=== PATIENT | female | born 1965 | race Caucasian/White ===

== ENCOUNTER → 2017-03-20 | Outpatient (CLI) | payer BC | END | disposition home or self-care (01) | LOC: LAB.O 11:19 | PROVIDERS: ATTEND Family Medicine | DX: I10 Essential (primary) hypertension (principal) ==

== ENCOUNTER → 2017-04-11 | Outpatient (CLI) | payer BC ==
--- NOTE | 2017-04-11 13:47 | CT ---
EXAM DESCRIPTION: Maxillofacial w/wo Contrast CLINICAL HISTORY: CHRONIC MAXILLARY SINUSITIS COMPARISON: None Available. TECHNIQUE: CT of the sinuses is performed with direct axial imaging technique. Multiplanar reformatted images are reviewed post along with source images. FINDINGS: Mucoperiosteal thickening is present in both maxillary sinuses. This is mild. Both ostiomeatal units are patent. Remaining paranasal sinuses clear. Moderate broad leftward deviation of the nasal septum. Cely bullosa right middle turbinate. IMPRESSION: Chronic appearing mucoperiosteal thickening both maxillary sinuses This exam was performed according to our departmental dose-optimization program, which includes automated exposure control, adjustment of the mA and/or kV according to patient size and/or use of iterative reconstruction technique. Electronically signed by: Rell Valerio MD 04/11/2017 1:46 PM CDT
== END | disposition home or self-care (01) ==
LOC: CT 10:01
PROVIDERS: ATTEND Family Medicine
DX: J32.0 Chronic maxillary sinusitis (principal); J32.1 Chronic frontal sinusitis

== ENCOUNTER 2017-05-08 09:48 | Observation (INO) | payer BC ==
[2017-05-08] MEDS ORDERED: PANTOPRAZOLE SODIUM IV 40 MG VIAL IV ONE (10:08)
[2017-05-08] MEDS ORDERED: SODIUM CHLORIDE 0.9% 1000ML 1,000 ML IVS ONE ×2 (10:08→11:25)
[2017-05-08] MEDS ORDERED: ONDANSETRON INJ 4 MG/2 ML VIAL IV ONE (10:08)
--- NOTE | 2017-05-08 10:11 | ED.PDOC ---
History of Present Illness - General Chief Complaint: GI Problem Stated Complaint: Vomiting and diarrhea Time Seen by Provider: 05/08/17 10:04 Information Source: patient, RN notes reviewed, Vital Signs reviewed Exam Limitations: no limitations - History of Present Illness Initial Comments: Patient reports that she started to feel bad last night. Then started with uncontrollable vomiting and diarrhea @ 05:30 this morning. + epigastric pain both crampy and burning. + chills. + sick contact with same symptoms. Abdominal Pain Onset Location: epigastric Pain Radiation: no radiation Quality: severe, burning, cramping, steady Timing/Duration: 4-6 hours Improving Factors: nothing Worsening Factors: nothing Associated Symptoms: diarrhea, fever/chills, fatigue, heartburn, nausea/vomiting Review of Systems - Review of Systems Constitutional: States: chills, malaise. Denies: fever EENTM: States: no symptoms reported Respiratory: States: no symptoms reported Cardiology: States: no symptoms reported Gastrointestinal/Abdominal: States: see HPI, abdominal pain, diarrhea, nausea, vomiting Musculoskeletal: States: no symptoms reported Skin: States: no symptoms reported Neurological: States: no symptoms reported All other Systems: No Change from Baseline Family Medical History - Family History Mother Family History: No Known Living Status: Physical Exam - Physical Exam General Appearance: Ill Appearing, Unkempt, Well Developed, Well Nourished Neck: supple, normal inspection Respiratory: lungs clear, normal breath sounds, no respiratory distress, no accessory muscle use Cardiovascular/Chest: regular rate, rhythm, no edema, no gallop, no JVD, no murmur Gastrointestinal/Abdominal: soft, abnormal bowel sounds - Hypoactive, tenderness - Epigastric - mild. Extremity: normal inspection Neurologic: alert, normal mood/affect, oriented x 3 Skin Exam: normal color, warm/dry Comments: Vital Signs 05/08/17 09:52 Temperature 97.9 F Pulse Rate [ 78 Left Radial] Respiratory 20 Rate Blood Pressure 171/93 [Left Arm] O2 Sat by Pulse 100 Oximetry Progress - Progress Progress: 05/08/17 10:22 Patient now reporting Zofran has given her a bad BALLESTEROS in the past. Will change to phenergan. 05/08/17 10:45 Patient now reporting she needs something for pain. Explained she was given Protonix and Phenergan. She reports this is her chronic, all over nerve pain that she takes Morphine 30mg TID for. Reports her last dose was yesterday at noon due to not feeling well. 05/08/17 11:23 Patient reports no improvement with Phenergan and Morphine though she is no longer vomiting. Will give another dose of Phenergan and another L of NS. will also check Amylase and Lipase. 05/08/17 12:23 No further vomiting and is sleeping. 05/08/17 13:39 Patient began with vomiting and diarrhea again. Will admit to hospital for further management as I don't feel she will do well at home. Discussed with Hospitalist who is in agreement. Patient and agree with admission. - Results/Orders Results/Orders: Laboratory Tests 05/08/17 05/08/17 10:15 10:15 WBC 13.6 H RBC 5.66 H Hgb 13.7 Hct 42.9 MCV 75.8 L MCH 24.2 L MCHC 31.9 L RDW 16.0 H Plt Count 195 MPV 8.3 Absolute Neuts (auto) 11.50 H Absolute Lymphs (auto) 1.20 Absolute Monos (auto) 0.70 Absolute Eos (auto) 0.10 Absolute Basos (auto) 0.10 Neutrophils % 84.7 H Lymphocytes % 8.5 L Monocytes % 5.5 Eosinophils % 0.9 L Basophils % 0.4 Sodium 142 Potassium 3.8 Chloride 98 Carbon Dioxide 33 H Anion Gap 14.8 BUN 33 H Creatinine 0.70 BUN/Creatinine Ratio 47.1 H Random Glucose 145 H Serum Osmolality Not Reportable Calcium 9.7 Total Bilirubin 1.3 AST 19 ALT 30 Alkaline Phosphatase 138 H Serum Total Protein 8 Albumin 4.7 Globulin 3.3 Albumin/Globulin Ratio 1.4 Departure - Departure Clinical Impression: Gastroenteritis Vomiting Qualifiers: Vomiting type: bilious vomiting Nausea presence: with nausea Qualified Code(s) : R11.14 - Bilious vomiting Time of Disposition: 13:41 Disposition: Admit Patient Condition: Fair Departure Forms: ED Discharge - Pt. Copy, Patient Portal Self Enrollment Referrals: Krishna Abrams MD [Primary Care Provider] - 1-2 Weeks Decision To Admit - Decistion To Admit Decision to Admit Reason: Admit from ER Decision to Admit Date: 05/08/17 Decision to Admit Time: 13:39
[2017-05-08] MEDS ORDERED: PROMETHAZINE HCL INJ 12.5 MG in SODIUM CHLORIDE 0.9% 50ML 50 ML IVPB ONE ×2 (10:23→11:25)
[2017-05-08] MEDS ORDERED: PROMETHAZINE HCL INJ 25 MG/ML VIAL ONE ×2 (10:24→11:37)
[2017-05-08] MEDS ORDERED: SODIUM CHLORIDE 0.9% 50ML 50 ML ONE ×2 (10:25→11:37)
[2017-05-08] MEDS ORDERED: MORPHINE SULFATE INJ 10 MG/ML VIAL IV ONE (10:48)
--- NOTE | 2017-05-08 14:23 | HP ---
SUPERVISING PHYSICIAN: Krishna Abrams MD CHIEF COMPLAINT: Nausea, vomiting and diarrhea. HISTORY OF PRESENT ILLNESS: This is a 52-year-old female patient who visited her children in the [facility] over the weekend and they had gastroenteritis. Last night, she started having some nausea and vomiting and overnight it worsened to the point that her nausea and vomiting became so bad that she came to the Emergency Room. She said the epigastric pain was cramping and burning. She also had chills. She has a significant history of opioid induced constipation and before her symptoms worsened, she actually took some mag citrate because she thought she was having constipation issues and most likely worsened her condition. In the Emergency Room, she was given some IV fluids. She was given some IV Protonix. She also is allergic to Zofran, so she was given some Phenergan. Her lab studies showed WBC slightly elevated at 13.6, hemoglobin 13.7, hematocrit 42.9, neutrophils 84.7. Sodium 142, potassium 3.8, chloride 98, carbon dioxide 33, BUN 33, creatinine 0.7, glucose 145, alkaline phosphatase 138, amylase 36, lipase 23. Abdominal x-ray per radiologic interpretation shows heart size is top limits of normal, pulmonary vascular congestion centrally, minimal increased interstitial markings compatible with minimal edema, mild peribronchial thickening is also seen. No focal consolidation or pleural effusion. Abdominal radiograph shows paucity of bowel gas, no evidence of mechanical bowel obstruction, no organomegaly or obvious abdominal mass lesion. She did say she had been treated several days prior to her admission to the Emergency Room for a sinus infection. She does have a history of chronic sinus infection. She was given clindamycin as well as steroids. She saw her ENT doctor on Saturday or Saturday and he told her he saw no signs or symptoms of an infectious process, but she continued the clindamycin until yesterday. I was called to place the patient in observation. PAST MEDICAL HISTORY: 1. Opioid induced constipation. 2. Chronic sinusitis. 3. Chronic lower limb edema. 4. Asthma. 5. Hypertension. 6. Mitral valve prolapse. 7. Gastroesophageal reflux disease. 8. Irritable bowel syndrome. 9. Degenerative disc disease. 10. Chronic myofascial pain syndrome. PAST SURGICAL HISTORY: 1. Two C-sections. 2. Hysterectomy. 3. Laminectomy. 4. Intrathecal pain pump insertion. 5. Knee surgery. ALLERGIES: AMOXICILLIN, CEPHALEXIN, KETORALAC, ZOFRAN. SHE HAS RECENTLY HAD AN ADVERSE REACTION TO WHAT SHE THINKS WAS DOXYCYCLINE OR LEVOFLOXACIN, SHE IS NOT SURE WHICH ONE, BUT IT WAS JUST SOME GI DISTRESS. SOCIAL HISTORY: She is . She has two children. She has a past history of cigarette smoking, but quit in 1989. She denies any ETOH or illicit drug use. REVIEW OF SYSTEMS: GENERAL: Positive for low grade fever. No for fatigue or weight gain. HEENT: Positive for chronic sinusitis. Negative for ear pain, vision changes or sore throat. RESPIRATORY: Negative for wheezing, coughing or shortness of breath. CARDIAC: Negative for chest pain, palpitations or tachycardia. GASTROINTESTINAL: As per history of present illness. EXTREMITIES: Positive for upper and lower extremity edema. GENITOURINARY: Negative for hematuria, dysuria or polyuria. NEUROLOGIC: Negative for headache, dizziness, or seizures. MUSCULOSKELETAL: Positive for chronic pain. PHYSICAL EXAMINATION: VITAL SIGNS: Afebrile. Heart rate 78. Blood pressure 137/73. It had been 190/ 96 earlier today. Respiratory rate 16. O2 saturation 89 to 95%. GENERAL: This is a 52-year-old female patient who is sitting up in her hospital bed. HEENT: Normocephalic, atraumatic. Pupils are equal and reactive. She has some clear nasal drainage. Oropharynx is clear. NECK: Supple without mass. RESPIRATORY: Essentially clear to auscultation bilaterally. CARDIOVASCULAR: Regular rate and rhythm. ABDOMEN: Soft, nondistended. It is diffusely tender, but mild. Bowel sounds are positive. EXTREMITIES: Trace of edema to bilateral upper and lower extremities. SKIN: Warm and dry. NEUROLOGIC: Awake, alert and oriented times three. LABORATORY: As per the history of present illness. ASSESSMENT: 1. Gastroenteritis. 2. Nausea and vomiting, likely secondary to #1. 3. Diarrhea, most likely secondary to #1, but exacerbated by a dose of mag citrate. 4. Chronic opioid induced constipation. 5. Chronics sinusitis. 6. Asthma. 7. Hypertension. 8. History of mitral valve prolapse. 9. Gastroesophageal reflux disease. 10. Irritable bowel syndrome. 11. Chronic myofascial pain syndrome. PLAN: We will place the patient in observation. I have given her IV fluids and we will make her NPO initially and once her nausea, vomiting and diarrhea subside, we will decrease her IV fluids as she starts to tolerate some clear liquids. I have given her Protonix IV for ulcer prophylaxis as well as she will have Lovenox for DVT prophylaxis. I have given her Compazine for her nausea., re-started her home medications. We will monitor her electrolytes. Hopefully, after her nausea, vomiting and diarrhea subside she can be discharged home. Otherwise, we will continue to monitor the patient closely and follow as needed. Dr. Abrams is the collaborating physician and available for consultation. #[id number] [facility]
--- NOTE | 2017-05-08 14:42 | RAD ---
EXAM DESCRIPTION: Obstructive series, 3 radiographs CLINICAL HISTORY: Epigastric pain/N/V/D FINDINGS/ IMPRESSION: Heart size top limits normal. Pulmonary vascular congestion centrally. Minimal increased interstitial markings compatible with minimal edema. Mild peribronchial thickening is also seen. No focal consolidation or pleural effusion Abdomen radiographs show a paucity of bowel gas. No evidence of mechanical bowel obstruction No organomegaly or obvious abdominal mass lesion Electronically signed by: Spencer Babcock MD 05/08/2017 2:40 PM CDT
[2017-05-08] MEDS ORDERED: SODIUM CHLORIDE 0.9% (FLUSH) 10 ML SYG IV PRN (15:40)
[2017-05-08] MEDS ORDERED: PROCHLORPERAZINE INJ 10 MG/2 ML VIAL IV PRN (15:46)
[2017-05-08] MEDS ORDERED: IV SET AND CAP CHANGE INJ INJ SCH (16:00)
[2017-05-08] MEDS: KCL 20MEQ/D5 1/2NS 1,000 ML IVS PRN ×2 (16:36→22:31)
[2017-05-08] MEDS ORDERED: PANTOPRAZOLE SODIUM IV 40 MG VIAL ONE (19:25)
[2017-05-08] MEDS ORDERED: tiZANidine 4 MG TAB PO PRN (20:32)
[2017-05-08] MEDS ORDERED: SENNA/DOCUSATE TAB 1 EA TAB PO ONE (21:23)
[2017-05-08] MEDS ORDERED: MORPHINE *IMMEDIATE RELEASE* 15 MG TAB ONE (21:54)
[2017-05-08] MEDS ORDERED: predniSONE 10 MG TAB ONE (21:54)
[2017-05-08] MEDS ORDERED: predniSONE 10 MG TAB PO SCH (22:00)
[2017-05-08] MEDS ORDERED: guaiFENesin ER TAB 600 MG TAB PO SCH (22:00)
[2017-05-08] MEDS: MORPHINE *IMMEDIATE RELEASE* 15 MG TAB PO PRN (22:27)
[2017-05-09] MEDS: KCL 20MEQ/D5 1/2NS 1,000 ML IVS PRN (04:36)
[2017-05-09 05:38] VITALS: BP 112/62; TEMP 97.5
[2017-05-09] MEDS ORDERED: PANTOPRAZOLE SODIUM IV 40 MG VIAL IV SCH (06:30)
[2017-05-09] MEDS: MORPHINE *IMMEDIATE RELEASE* 15 MG TAB PO PRN (06:43)
[2017-05-09] MEDS ORDERED: IBUPROFEN 400 MG TAB PO PRN (07:09)
[2017-05-09] MEDS ORDERED: POTASSIUM CHLORIDE 10 MEQ TAB PO ONE (07:14)
[2017-05-09] MEDS ORDERED: POTASSIUM CHLORIDE 10 MEQ TAB PO SCH ×2 (07:30→09:00)
[2017-05-09] MEDS ORDERED: FLUTICASONE FUROATE INH SCH (09:00)
[2017-05-09] MEDS ORDERED: LISINOPRIL 10 MG TAB PO SCH (09:00)
[2017-05-09] MEDS ORDERED: NON-FORMULARY MEDICATION 1 EA MIS (Mirabegron [Myrbetriq] 50 MG) PO SCH (09:00)
[2017-05-09] MEDS ORDERED: ASPIRIN TABLET 325 MG TAB PO SCH (09:00)
[2017-05-09] MEDS ORDERED: NALOXEGOL OXALATE 12.5 MG PO SCH (09:00)
[2017-05-09] MEDS ORDERED: MORPHINE SULFATE 30 MG PO SCH (09:00)
[2017-05-09] MEDS ORDERED: LORATADINE 10 MG TAB PO SCH (09:00)
[2017-05-09] MEDS ORDERED: FUROSEMIDE 40 MG TAB PO SCH (09:00)
[2017-05-09] MEDS ORDERED: BIFIDOBACTERIUM INFANTIS 4 MG CAP PO SCH (09:00)
[2017-05-09] MEDS ORDERED: POTASSIUM CHLORIDE 20 MEQ TAB PO SCH (09:00)
[2017-05-09] MEDS ORDERED: MELOXICAM 7.5 MG TAB PO SCH (09:00)
[2017-05-09 10:30] VITALS: O2SAT 97
--- NOTE | 2017-05-09 10:33 | DS ---
SUPERVISING PHYSICIAN: Krishna Abrams MD DISCHARGE DIAGNOSIS: 1. Gastroenteritis. 2. Nausea and vomiting, likely secondary to #1. 3. Diarrhea, most likely secondary to #1, but exacerbated by a dose of mag citrate. 4. Chronic opioid induced constipation. 5. Chronics sinusitis. 6. Asthma. 7. Hypertension. 8. History of mitral valve prolapse. 9. Gastroesophageal reflux disease. 10. Irritable bowel syndrome. 11. Chronic myofascial pain syndrome. HISTORY OF PRESENT ILLNESS: This is a 52-year-old female patient who visited her children in the [facility] over the weekend and they had gastroenteritis. Last night, she started having some nausea and vomiting and overnight it worsened to the point that her nausea and vomiting became so bad that she came to the Emergency Room. She said the epigastric pain was cramping and burning. She also had chills. She has a significant history of opioid induced constipation and before her symptoms worsened, she actually took some mag citrate because she thought she was having constipation issues and most likely worsened her condition. In the Emergency Room, she was given some IV fluids. She was given some IV Protonix. She also is allergic to Zofran, so she was given some Phenergan. Her lab studies showed WBC slightly elevated at 13.6, hemoglobin 13.7, hematocrit 42.9, neutrophils 84.7. Sodium 142, potassium 3.8, chloride 98, carbon dioxide 33, BUN 33, creatinine 0.7, glucose 145, alkaline phosphatase 138, amylase 36, lipase 23. Abdominal x-ray per radiologic interpretation shows heart size is top limits of normal, pulmonary vascular congestion centrally, minimal increased interstitial markings compatible with minimal edema, mild peribronchial thickening is also seen. No focal consolidation or pleural effusion. Abdominal radiograph shows paucity of bowel gas, no evidence of mechanical bowel obstruction, no organomegaly or obvious abdominal mass lesion. She did say she had been treated several days prior to her admission to the Emergency Room for a sinus infection. She does have a history of chronic sinus infection. She was given clindamycin as well as steroids. She saw her ENT doctor on Saturday or Saturday and he told her he saw no signs or symptoms of an infectious process, but she continued the clindamycin until yesterday. I was called to place the patient in observation. HOSPITAL COURSE: The patient was given IV fluids and one additional dose of Phenergan. Her nausea, vomiting and diarrhea subsided. Her WBCs normalized this morning to 7.4 with a hemoglobin of 11.5 and hematocrit 36.3. Her chemistries were basically within normal limits except her bilirubin was slightly high at 1.4. Yesterday, her alkaline phosphatase was 138 and was 89 today. She feels much better this morning and she will be discharged home. DISCHARGE PLAN: The patient will be discharged home in stable condition. She is to resume her previous medications and diet. She is to increase her activity as tolerated. She is to followup with Dr. Abrams on 05/21/17 at 10:30 AM. She is to return to the hospital or call Dr. Abrams' office with any further problems or complications. DISCHARGE MEDICATIONS: 1. Tizanidine. 2. Fiber. 3. Aspirin. 4. Myrbetriq. 5. Gralise. 6. Loratadine. 7. Movantik. 8. Furosemide. 9. Meloxicam. 10. Lisinopril. 11. Dexilant. 12. Morphine sulfate. 13. Dulara. 14. Ventolin inhaler. 15. Micro-K. 16. Align. 17. Fluticasone inhaled. 18. Senokot. 19. Guaifenesin. 20. Prednisone. Dr. Abrams is the collaborating physician and available for consultation. #[id number] [facility]
== END 2017-05-09 10:25 | disposition home or self-care (01) ==
LOC: ER 09:48 → MS 14:22 → UNDOADMOB 14:22
PROVIDERS: ADMIT Nurse Practitioner Acute Care; ATTEND Nurse Practitioner Acute Care
DX: K52.9 Noninfective gastroenteritis and colitis, unspecified (principal); R11.2 Nausea with vomiting, unspecified; K59.03 Drug induced constipation; T40.2X5A Adverse effect of other opioids, initial encounter; J32.9 Chronic sinusitis, unspecified; J45.909 Unspecified asthma, uncomplicated; I10 Essential (primary) hypertension; I34.1 Nonrheumatic mitral (valve) prolapse; K21.9 Gastro-esophageal reflux disease without esophagitis; G89.4 Chronic pain syndrome; M79.1 Myalgia; Z79.891 Long term (current) use of opiate analgesic; Z79.1 Long term (current) use of non-steroidal anti-inflammatories (NSAID); Z79.82 Long term (current) use of aspirin; Z79.899 Other long term (current) drug therapy; Z88.0 Allergy status to penicillin; Z88.3 Allergy status to other anti-infective agents; Z88.6 Allergy status to analgesic agent; Z88.8 Allergy status to other drugs, medicaments and biological substances; Z96.89 Presence of other specified functional implants; Z87.891 Personal history of nicotine dependence; Y92.009 Unspecified place in unspecified non-institutional (private) residence as the place of occurrence of the external cause
CPT/HCPCS: 36415 ×2; 74020; 80053 ×2; 82150; 83690; 83735; 85025 ×2; 94760 ×4; 96361; 96365; 96366; 96375 ×2; 96376; 99284; A4216 ×2; G0378; J0780; J2270; J2550 ×2; J7030 ×2; J7512

== ENCOUNTER → 2018-09-08 | Outpatient (CLI) | payer BC ==
--- NOTE | 2018-09-08 13:11 | US ---
EXAM DESCRIPTION: Venous,Lower Extremity LT: ULTRASOUND. CLINICAL HISTORY: R60.0 EDEMA. History of trauma to the knee over 10 years ago. Left lower extremity swelling. COMPARISON: None Available. TECHNIQUE: Varela-scale and doppler sonographic evaluation of the deep venous system of the left lower extremity. FINDINGS: Doppler evaluation shows normal color flow and normal phasicity and augmentation of the left common femoral vein, femoral vein, popliteal vein, greater saphenous vein, peroneal, and posterior tibial vein. The left lower extremity deep veins were completely compressible; normal occlusion with transducer pressure. Varela-scale survey showed no echogenic thrombus within these veins. Hypoechoic mass abutting the patellofemoral joint with circumscribed margins and nonvascular. Posterior acoustic enhancement. Dimensions 1.5 x 1.4 x 1.0. IMPRESSION: 1. Duplex ultrasound evaluation of the left lower extremity deep venous system showing no evidence of thrombosis. 2. Probable joint effusion abutting the left patellofemoral joint. CRITICAL COMMUNICATION: The critical value was discussed directly by phone by aerophysicist Ms. Bea Moncada RDMS, (V), with Dr. Krishna Abrams, at approximately 1150 hours, on September 08, 2018. Electronically signed by: Fly Tovar MD 09/08/2018 1:09 PM [employer]
== END ==
LOC: US 11:13
PROVIDERS: ATTEND Family Medicine
DX: R60.0 Localized edema (principal)

== ENCOUNTER → 2018-09-11 | Outpatient (CLI) | payer BC ==
--- NOTE | 2018-09-11 13:11 | RAD ---
4 view left knee Indication: PAIN IN LEFT KNEE Comparison: None. Impression: Significant varus angulation of the knee. Severe medial compartment osteoarthritis with [id number] appearance and cortical remodeling. Lateral translation tibia in relation to the femur with moderate to severe narrowing of the medial aspect of the lateral compartment. Severe patellofemoral compartment osteoarthritis noted as well. Large joint line osteophytes. Small joint effusion. No gross fracture. Several ossified loose bodies within the joint space. Electronically signed by: Cooper Sheth MD 09/11/2018 1:09 PM [facility]
--- NOTE | 2018-09-11 13:12 | RAD ---
EXAM DESCRIPTION: Pelvis CLINICAL HISTORY: PAIN IN LEFT HIP COMPARISON: August 04, 2015 IMPRESSION: Single AP supine view of the pelvis shows no acute fracture, focal bone destruction, or joint dislocation. Mild osteoarthritic changes are seen in both hips. Spine pain infusion pump overlies the right iliac crest. Surgical clips in the left hemipelvis are seen. Electronically signed by: Joel Jones MD 09/11/2018 1:10 PM [facility]
== END ==
LOC: RAD 09:00
PROVIDERS: ATTEND Orthopaedic Surgery
DX: M17.12 Unilateral primary osteoarthritis, left knee (principal); M16.0 Bilateral primary osteoarthritis of hip; M25.462 Effusion, left knee; M25.562 Pain in left knee; M25.552 Pain in left hip

== ENCOUNTER → 2019-03-27 | Outpatient (CLI) | payer BC ==
--- NOTE | 2019-03-27 17:38 | RAD ---
EXAM DESCRIPTION: Hand,Left 3 Views (accession [id number]), Hand,Right 3 Views (accession [id number]) CLINICAL HISTORY: PAIN IN LEFT AND RIGHT HANDS COMPARISON: None Available. TECHNIQUE: AP, LATERAL, AND OBLIQUE LEFT AND RIGHT HANDS FINDINGS: Three-view left and right hands demonstrate no acute displaced fracture or dislocation. No focal bony erosion or aggressive periosteal reaction seen. Mild osteoarthrosis with joint space narrowing, subchondral sclerosis and small marginal osteophyte formation affects the bilateral interphalangeal and metacarpal phalangeal joints. The soft tissues are unremarkable. IMPRESSION: 1. No acute osseous abnormality involving the right or left hands. 2. Mild bilateral hand osteoarthrosis. Electronically signed by: Elijah Solano DO 03/27/2019 5:36 PM CDT
--- NOTE | 2019-03-27 17:38 | RAD ---
EXAM DESCRIPTION: Hand,Left 3 Views (accession [id number]), Hand,Right 3 Views (accession [id number]) CLINICAL HISTORY: PAIN IN LEFT AND RIGHT HANDS COMPARISON: None Available. TECHNIQUE: AP, LATERAL, AND OBLIQUE LEFT AND RIGHT HANDS FINDINGS: Three-view left and right hands demonstrate no acute displaced fracture or dislocation. No focal bony erosion or aggressive periosteal reaction seen. Mild osteoarthrosis with joint space narrowing, subchondral sclerosis and small marginal osteophyte formation affects the bilateral interphalangeal and metacarpal phalangeal joints. The soft tissues are unremarkable. IMPRESSION: 1. No acute osseous abnormality involving the right or left hands. 2. Mild bilateral hand osteoarthrosis. Electronically signed by: Elijah Solano DO 03/27/2019 5:36 PM CDT
== END ==
LOC: RAD 09:19
PROVIDERS: ATTEND Orthopaedic Surgery
DX: M19.041 Primary osteoarthritis, right hand (principal); M19.042 Primary osteoarthritis, left hand

== ENCOUNTER → 2019-06-29 | Outpatient (CLI) | payer BC | LOC: LAB.O 12:52 | PROVIDERS: ATTEND Orthopaedic Surgery | DX: M17.12 Unilateral primary osteoarthritis, left knee (principal) ==

== ENCOUNTER → 2019-07-31 | Outpatient (CLI) | payer BC ==
--- NOTE | 2019-07-31 09:25 | US ---
Study: Left lower extremity venous Doppler sonogram. Indication: DVT Technical: Multiplanar grayscale and Doppler sonographic images of the deep veins of the left lower extremity obtained. Findings: No deep venous thrombosis identified by ultrasound. The deep veins of the left lower extremity compress normally and have appropriate duplex waveforms. Normal flow augmentation is noted as well. Impression: No deep venous thrombosis of the left lower extremity identified by ultrasound. Electronically signed by: Cooper Sheth MD 07/31/2019 9:24 AM [employer]
== END ==
LOC: US 08:09
PROVIDERS: ATTEND Orthopaedic Surgery
DX: R60.9 Edema, unspecified (principal); L53.9 Erythematous condition, unspecified; Z86.718 Personal history of other venous thrombosis and embolism; Z47.1 Aftercare following joint replacement surgery; Z96.652 Presence of left artificial knee joint

== ENCOUNTER → 2019-08-19 | Outpatient (CLI) | payer BC | LOC: LAB.O 16:11 | PROVIDERS: ATTEND Family Medicine | DX: L50.0 Allergic urticaria (principal) ==

== ENCOUNTER → 2020-02-01 | Outpatient (CLI) | payer BC | LOC: LAB.O 11:10 | PROVIDERS: ATTEND Orthopaedic Surgery | DX: M25.562 Pain in left knee (principal) ==

== ENCOUNTER → 2020-09-12 | Outpatient (CLI) | payer BC ==
--- NOTE | 2020-09-12 13:29 | RAD ---
EXAM DESCRIPTION: Elbow,Left 3 Views CLINICAL HISTORY: PAIN COMPARISON: None Available. TECHNIQUE: AP, Lateral, and Oblique FINDINGS: Three views left elbow demonstrate moderate hypertrophic changes at the articular margins particularly medially involving the proximal ulna as well as the region of the coronoid process. No fracture or dislocation seen. No hemarthrosis noted. No other changes evident. Slight soft tissue fullness posterior to the olecranon process suggests an element of olecranon bursitis. IMPRESSION: 1. Degenerative changes and marginal osteophyte formation with likely small olecranon bursal effusion. Electronically signed by: Spencer Ruiz MD 09/12/2020 1:27 PM [facility]
== END ==
LOC: RAD 10:26
PROVIDERS: ATTEND Orthopaedic Surgery
DX: Z01.818 Encounter for other preprocedural examination (principal); M25.422 Effusion, left elbow; M19.022 Primary osteoarthritis, left elbow

== ENCOUNTER → 2020-10-03 | Day surgery (SDC) | payer BC ==
--- NOTE | 2020-09-27 09:20 | RAD ---
EXAM DESCRIPTION: Chest,2 Views: CHULA/ CLINICAL HISTORY: 55 years Female preop clearance COMPARISON: 2 view chest July 2009. TECHNIQUE: Two views. PA and Lateral. FINDINGS: Lungs: Minimal to moderate expansion. Bilateral perihilar peribronchial wall cuffing with prominent central pulmonary vascularity stable since the prior study. No acute infiltrate. Right hemidiaphragm elevated Pleural spaces: No effusion or pneumothorax bilaterally. Heart: Borderline enlarged. Pulmonary Vascularity: Not increased. Mediastinum: Not widened. Aorta: Unremarkable. Bony Thorax/Spine: No acute bony thoracic abnormalities. Minimal disc space narrowing. IMPRESSION: Chronic perihilar peribronchial wall cuffing and central pulmonary vascularity bilaterally. Borderline cardiomegaly. Pulmonary vascularity unremarkable. No acute infiltrate. Stable since July 2009. Electronically signed by: Fly Tovar MD 09/27/2020 9:18 AM [facility]
[~2020-10-03] MED LIST: BUPIVACAINE 0.25% INJ 30 ML VIAL INJ ONE; DEXAMETHASONE INJ 10 MG/ML VIAL IV ONE; LACTATED RINGERS 1,000 ML ONE; LIDOCAINE 1% 10 ML VIAL INJ ONE; PROPOFOL 200 MG/20 ML VIAL IV ONE; SODIUM CHL 0.9% 100ML MINI-BAG 100 ML IVPB ONE; VANCOMYCIN HCL INJ 1,000 MG VIAL IVPB ONE; ceFAZolin SODIUM 1 GM VIAL ONE
--- NOTE | 2020-10-06 08:44 | OP ---
DATE OF PROCEDURE: 10/03/20 PREOPERATIVE DIAGNOSIS: 1. Right carpal tunnel syndrome. POSTOPERATIVE DIAGNOSIS: 1. Right carpal tunnel syndrome. PROCEDURE: 1. Right carpal tunnel release. SURGEON: Lalito Smith MD. BOILERMAKER'S ASSISTANT: Fly Salazar CST, SA-C. ANESTHESIA: Local with sedation. COMPLICATIONS: None. FINDINGS: Thickening of the transverse carpal ligament. INDICATION: Ms. Batista has a history of numbness in the first three digits along with wrist pain. She had failed conservative measures for carpal tunnel syndrome and therefore requested operative intervention. After discussing the risks, benefits and alternatives to operative therapy, the patient has given informed consent for carpal tunnel release. PROCEDURE: The patient was brought to the Operating Room and placed in the supine position. Sedation was administered and local anesthetic was injected into the operative area under sterile conditions. After the injection of anesthetic, the arm was sterilely prepped and draped. A longitudinal incision was made directly overlying the transverse carpal ligament and blunt dissection was carried down to the ligament. The transverse carpal ligament was sharply transected along its length and a [place] elevator was used to ensure complete release of the ligament. Once release had been confirmed, the wound was thoroughly irrigated and the wound was closed with Nylon suture. A sterile dressing was placed and the patient was taken to the Day Surgery Unit. POSTOPERATIVE PLAN: The patient will be using the digits for range of motion. She will followup with us in two days. #[id number] MTDD
== END ==
LOC: AMB 09-27 05:20
PROVIDERS: ATTEND Orthopaedic Surgery
DX: G56.01 Carpal tunnel syndrome, right upper limb (principal); K21.9 Gastro-esophageal reflux disease without esophagitis; I11.9 Hypertensive heart disease without heart failure; I73.9 Peripheral vascular disease, unspecified; J45.909 Unspecified asthma, uncomplicated; Z88.5 Allergy status to narcotic agent; Z88.1 Allergy status to other antibiotic agents; Z88.8 Allergy status to other drugs, medicaments and biological substances; Z82.49 Family history of ischemic heart disease and other diseases of the circulatory system; Z90.710 Acquired absence of both cervix and uterus; Z79.899 Other long term (current) drug therapy
CPT/HCPCS: 01810; 64721; 71046; 80307; 93005; A4216; J0690; J1100; J2250; J3010; J3370; J3490; J7050; J7120